=== PATIENT | male | born 1935 | race Caucasian/White ===

== ENCOUNTER → 2016-07-23 | Outpatient (CLI) | payer OTHER ==
[~2016-07-23] VITALS: Ht 182.9 cm; Wt 104.3 kg
[~2016-07-23] MED LIST: APAP500 PO; ASPIR 8181 MG PO; CALCIUM 500 +1 EAC5 PO; CARISOPRODOL 3350 MG PO; CELEXA20 MG PO; COL-RITE50 MG PO; COREG CR10 MG PO; COREG3.125 MG PO; DULOXETINE HCL20 MG PO; ESSENTIAL DAIL1 EACH PO; FIBER TABS625 MG PO; FISH OIL 1,0001 EAC8 PO; FISH OIL 1,001000 M2 PO; LEVOTHYROXIN0.025 MG PO; LISINOPRIL10 MG PO; METFORMIN HCL500 MG PO; MOBIC15 MG PO; NAMENDA 5 MG TAB5 M1 PO; OMEPRAZOLE20 M1 PO; SELENIMIN50 MCG PO; SIMVASTATIN5 MG PO; VITAMIN D2000 UNIT PO
--- NOTE | ~2016-07-23 | HPC ---
[facility] [address] [place] [address] PAIN MANAGEMENT CONSULTATION Name: CRISTHIAN MCNAMARA Room #: REG ALPHONSO Joseph#: [id number] Admission: 07/23/16 Attend Phys: Connor Quintana DO Discharge: Date of : 37 Report #: [id number] THIS REPORT FOR: //name// CC: Alan Quintana DATE OF SERVICE: 07/23/2016 The patient is a pleasant 81-year-old gentleman seen in consultation at the request of Dr. Flores for assistance with management of chronic and ongoing pain concerns. The patient notes initially, he had low back pain treated well with L4-L5 fusion in 2011. Symptoms began to recur and in 2013, he had decompressive laminectomy in L2-L3. Again, he had good results for a while though in March, symptoms recurred without antecedent trauma and overuse. He is complaining primarily of mid to low back pain. He did see another pain clinic provider and had both a thoracic epidural injection and a caudal injection. Unfortunately, both of those afforded really nominal efficacy. He notes he has ongoing pain, low back that is steady, aching, rates anywhere from 4-7 on a 0-10 visual analog scale, seems to be exacerbated with any bending and walking. Does get some relief when he is sitting or taking Tylenol. He saw Dr. Deshpande, his prior surgeon who noted at this time, no surgery was specifically indicated, though he suggested with his ongoing radicular symptoms, he may require surgery at some point in the future. The patient currently and to his credit, has continued to do physical therapy about 20 minutes a day 4 times a week. He has been using a cane off and on, more so since pain recurred in March. The patient denies bowel or bladder incontinence, saddle anesthesia or any specific myelopathic symptoms. REVIEW OF SYSTEMS: Complete review of systems attached to chart and gone over with the patient. He is , does not smoke or drink alcohol to excess. History of non-insulin dependent diabetes for which he takes metformin, hypertension for which he takes lisinopril and carvedilol. He had myocardial infarction. [place] had multivessel coronary artery bypass graft surgery in [facility]. Suffers from dyslipidemia for which he takes cholesterol. Had thyroid surgery in the distant past, takes thyroid supplement. Takes Cymbalta ostensibly for pain and some anxiety and Namenda for some cognitive impairment. He has been on Namenda for about 10 years. 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 Pain impact score is about 5 on a 0-10 [place] [address] PAIN MANAGEMENT CONSULTATION Name: CRISTHIAN MCNAMARA Room #: REG ALPHONSO Ruiz#: [id number] Admission: 07/23/16 Attend Phys: Connor Quintana DO Discharge: Date of : 37 Report #: [id number] all indices queried. PHYSICAL EXAMINATION: Reveals a 6-foot tall, 230-pound gentleman, BMI is 31.2 kilograms per meter squared. Blood pressure is 143/71, pulse 63, respirations 16. Cranial nerves 2-12 are grossly intact. Pupils equal, reactive to light and accommodation. He has significant decrease visual acuity in the left eye and a little bit of disconjugate gaze. No nystagmus is noted. Thyroid has been surgically excised. Does have some nodularity and fullness in the inferior aspect of his neck. Cervical range of motion is otherwise full. Upper extremity strength is preserved. Heart is regular and rhythmical with a subtle 1-2/6 systolic ejection murmur. Lungs show some scattered rhonchi. He notes a moderately endomorphic build. Rises from chair using armrest, has mildly antalgic gait though lumbar flexion is good about 90 degrees. Lower extremity strength is symmetric at 4/5 to all muscle groups tested. Patellar reflexes are difficult to elicit, but straight leg raise is negative. Does have tenderness in the low back area above the iliac crest, more in the L3-L4 area. No tenderness over the SI joints and indeed Alberto test is negative. Side rotation does exacerbate pain. DIAGNOSTIC STUDIES: Include MRI of the thoracic and lumbar spine noting some compromise throughout, some facet arthritis, does note the aforementioned L2-L3 laminectomy and L4-L5 fusion. ASSESSMENT: Symptomatic lumbar spondylosis, axial back pain in a gentleman status post lumbar decompressive laminectomy, coronary artery disease by history, non-insulin dependent diabetes, hypertension, dyslipidemia and some early cognitive defects generally well treated with Namenda at this time. RECOMMENDATION: I believe the patient would benefit from an L3-L4 facet joint injection under fluoroscopy. We talked about therapeutic options at length including consideration for medial branch dorsal rami diagnostic block and subsequent radiofrequency neurolysis if good transient relief is noted. If he gets moderate relief following facet joint injections in last 4-6 weeks, we can do that as needed. Lastly, we did talk about more interventional therapies including a spinal cord stimulator and further back surgery and possible fusion, though latter I think is not warranted at this time. Thank you for allowing me to participate in the patient's care. I will keep you abreast of his progress. <ELECTRONICALLY SIGNED> By: Connor Quintana DO 07/26/16916 0952 1448 Connor Quintana DO /nt
--- NOTE | ~2016-07-23 | HPC ---
[address] [address] PAIN MANAGEMENT CONSULTATION Name: CRISTHIAN MCNAMARA Adriana Room #: REG [facility] Joseph#: [id number] Admission: 07/23/16 Attend Phys: Connor Quitnana DO Discharge: Date of : 37 Report #: [id number] THIS REPORT FOR: //name// CC: Alan Quintana DATE OF SERVICE: 07/23/2016 PROCEDURE: Bilateral L3-L4 facet joint injections under fluoroscopy. INDICATION: Symptomatic lumbar spondylosis in a patient status post decompressive laminectomy with L4-L5 fusion. PROCEDURE NOTE: After written informed consent was obtained, the patient taken to the fluoroscopy suite, placed in the prone position. After sterile prep and drape, skin wheals with Xylocaine were raised and two 22-gauge stylet needles were placed to contact the inferior aspect of the left and right L3-L4 facet joints. AP and lateral projections showed good needle placement. A 20 mg of triamcinolone plus 1 mL of 0.5% preservative-free bupivacaine was injected in each joint. Both needles removed. The area was cleansed, Band-Aids applied. The patient was monitored for an appropriate period of time, discharged in good and stable condition, noting significant incremental improvement of baseline pain. <ELECTRONICALLY SIGNED> By: Connor Quintana DO 08/15/16 1209 1545 2150 Connor Quintana DO /nt
== END ==
LOC: PAIN 06:28
DX: M47.816 Spondylosis without myelopathy or radiculopathy, lumbar region (principal); I25.10 Atherosclerotic heart disease of native coronary artery without angina pectoris; E11.9 Type 2 diabetes mellitus without complications; I10 Essential (primary) hypertension; E78.5 Hyperlipidemia, unspecified; Z98.890 Other specified postprocedural states; F10.21 Alcohol dependence, in remission

== ENCOUNTER → 2016-09-24 | Outpatient (CLI) | payer OTHER ==
[~2016-09-24] VITALS: Ht 182.9 cm; Wt 101.2 kg
--- NOTE | ~2016-09-24 | HPC ---
[facility] [place] [address] [address] [place] [address] PAIN MANAGEMENT CONSULTATION Name: CRISTHIAN MCNAMARA Room #: REG ALPHONSO Ruiz#: [id number] Admission: 09/24/16 Attend Phys: Connor Quintana DO Discharge: Date of : 37 Report #: [id number] THIS REPORT FOR: //name// CC: Alan Quintana HISTORY OF PRESENT ILLNESS: The patient is a very pleasant 81-year-old gentleman being treated for lumbar spondylosis. The patient has spinal fusion with pedicle screws in L4 and L5, bilateral, with no movement at the L4-L5 facet joint. He has had pain with movement of the L5-S1 and L3-L4. I have done 2 specific blocks, initially bilateral L3-L4 facet joint injections, 07/23/2016 and subsequently bilateral L5-S1 facet joint injections, 08/13/2016. He notes greater than 50% relief of both blocks, in fact, he thinks actually the lower blocks did afford even a little more relief. He returns to the pain clinic today noting subjective axial back pain remains problematic. He rates the pain a 4-5 on a 0-10 visual analog scale, exacerbated with any and all movement. Pain is in the low back. Flexion, rotating and side bending exacerbates the pain particularly. Alberto test is negative. It does not appear to be SI mediated pain. He presents to the pain clinic today for prior authorized medial branch dorsal rami diagnostic blocks, L2, L3, L4 and L5 bilaterally, covering innervation of the bilateral L3-L4 and L5-S1 facet joints. We did talk today about radiofrequency neurolysis of the same if he gets short-term relief. If, however, he gets nominal relief from this intervention, we would consider spinal cord stimulator as a possible therapeutic option. ASSESSMENT: Symptomatic lumbar spondylosis. PROCEDURE NOTE: After written informed consent was obtained, the patient was taken to the fluoroscopy suite and placed in prone position. After sterile prep and drape, skin wheals with Xylocaine were raised times 4, left and right. A 16-gauge styletted spinal needle was placed to contact the left sacral alar notch. Second needle was placed to contact the L5 superior articular process lateral to the L4-L5 facet joint. Third needle was placed lateral to the L4 superior articular process lateral to the L3-L4 facet joint. Fourth needle was placed lateral to the L3 superior articular process lateral to the L2-L3 facet joint. AP and lateral projections showed good needle placement at or near the medial rami nerve. The procedure was then repeated on the right side. All 8 needles were then viewed, showing good placement. A 1 mL of 50:50 mix of 0.5% preservative-free bupivacaine plus Xylocaine 1% with 1:200,000 epinephrine was injected. All 8 needles were removed. The area was cleansed, Band-Aids applied. The patient was allowed to ambulate to the recovery room, monitored for an appropriate period of time. The patient noted dramatic improvement of baseline pain, in fact, noting his pain was absent, being a 0 on a visual analog [address] [address] PAIN MANAGEMENT CONSULTATION Name: CRISTHIAN MCNAMARA Room #: REG ALPHONSO Ruiz#: [id number] Admission: 09/24/16 Attend Phys: Connor Quintana DO Discharge: Date of : 37 Report #: [id number] chart on discharge. I asked him to monitor his pain score for the next 5 hours and call back with those reports to the pain clinic. If his good short-term relief continues for several hours, we will request permission to move forward with radiofrequency neurolysis of these nerves. I informed the patient I will only do one side at a time. He has to decide which side is the more problematic. By: 1454 2326 Connor Quintana DO /tiago
[2016-09-24 13:30] VITALS: BP 146/76
== END | disposition home or self-care (01) ==
LOC: PAIN 09-10 06:43
DX: M47.816 Spondylosis without myelopathy or radiculopathy, lumbar region (principal); I10 Essential (primary) hypertension; M19.90 Unspecified osteoarthritis, unspecified site; F32.9 Major depressive disorder, single episode, unspecified

== ENCOUNTER → 2016-10-08 | Outpatient (CLI) | payer OTHER ==
[~2016-10-08] VITALS: Ht 182.9 cm; Wt 104.1 kg
--- NOTE | ~2016-10-08 | HPC ---
[facility] [address] [place] [address] PAIN MANAGEMENT CONSULTATION Name: CRISTHIAN MCNAMARA Room #: REG ALPHONSO Ruiz#: [id number] Admission: 10/08/16 Attend Phys: Connor Quintana DO Discharge: Date of : 37 Report #: [id number] THIS REPORT FOR: //name// CC: Alan Quintana DATE OF SERVICE: 10/08/2016 HISTORY OF PRESENT ILLNESS: The patient is a very pleasant 81-year-old gentleman. He has had a lumbar decompression and fusion at L4-L5. He has pain at the joints above and below this, coming from L3-L4 joint and the L5-S1 facet joint. I have done bilateral L2, L3, L4 and L5 medial branch dorsal rami diagnostic blocks with very good relief. Since the pain clinic today for radiofrequency neurolysis of one side, we have elected to proceed with the right side as it was nominally more painful than the left. Following the last diagnostic block, he had excellent relief with pain score being 0 for about 4 hours and then back to his baseline 5/10 pain. Presents to pain clinic today with ongoing pain, low back, which he currently rates at 2-3/10 at rest, gets up to 5 or 6 with activity. He wished to proceed with the radiofrequency neurolysis of 2 discrete lumbar facet joints, the right L3-L4 joint and the right L5-S1 facet joint. This will require neurolysis of the L2 and L3 medial branch dorsal rami to cover the L3-L4 facet joint and RFL of the right L4 and L5 medial branch dorsal rami to cover the L5-S1 facet joint. ASSESSMENT: Symptomatic lumbar spondylosis in a patient status post L4-L5 fusion. PROCEDURE: Medial branch dorsal rami radiofrequency neurolysis x 4 on the right. FLUOROSCOPY TIME: Under 20 seconds. PROCEDURE NOTE: After written informed consent was obtained, the patient was taken to the fluoroscopy suite and placed in prone position. After sterile prep and drape, foreskin wheals are raised with 1% Xylocaine, four 20 gauge 10 mm RFK needles were placed to contact the right sacral alar notch (corresponding to the L5 medial branch dorsal rami). Second needle was placed lateral to the L5, superior articular process lateral to the L4-L5 facet corresponding to the L4 medial branch dorsal rami, third needle was placed lateral to the L4 superior articular process lateral to the L4-L3 facet joint corresponding to the L3 medial branch dorsal rami nerve, fourth needle was placed lateral to the L3 superior articular process lateral to the L2-L3 joint corresponding to the L2 medial branch dorsal rami nerve. After initial impedance, sensory and motor testing was accomplished, all three needles were injected with 1% preservative-free Xylocaine 1 mL. All four needles were heated to [address] [address] PAIN MANAGEMENT CONSULTATION Name: CRISTHIAN MCNAMARA Room #: REG ALPHONSO Ruiz#: [id number] Admission: 10/08/16 Attend Phys: Connor Quintana DO Discharge: Date of : 37 Report #: [id number] centigrade for 90 seconds, 10 mg of Decadron plus 1 mL of 0.5% preservative-free Xylocaine was injected. All four needles removed. The area was cleansed, Band-Aids applied. The patient was monitored for an appropriate period of time, discharged in good and stable condition. Follow up in 1 week for RFL of the contralateral side. By: 1250 0013 Connor Quintana DO /nt
[2016-10-08 10:59] VITALS: BP 138/76
== END | disposition home or self-care (01) ==
LOC: PAIN 07:42
DX: M47.816 Spondylosis without myelopathy or radiculopathy, lumbar region (principal)

== ENCOUNTER → 2016-10-15 | Outpatient (CLI) | payer OTHER ==
[~2016-10-15] VITALS: Ht 182.9 cm; Wt 103.0 kg
--- NOTE | ~2016-10-15 | HPC ---
[facility] [place] [address] [address] [place] [address] PAIN MANAGEMENT CONSULTATION Name: CRISTHIAN MCNAMARA Adriana Room #: REG Jose Ruiz#: [id number] Admission: 10/15/16 Attend Phys: Connor Quintana, Discharge: Date of : 37 Report #: [id number] THIS REPORT FOR: //name// CC: Alan Quintana The patient is a very pleasant 81-year-old gentleman being treated for symptomatic lumbar radiculopathy status post decompressive laminectomy, has a fusion at L4-L5, has ongoing lumbar spondylosis. The patient was last seen in pain clinic 10/08/2016. We progressed with radiofrequency neurolysis on the right of 2 joints, the L3-L4 and L5-S1 facet joints (medial branch dorsal rami blocks at L2, L3, L4 and L5). The patient returns to pain clinic today noting some incremental relief with this procedure. He is desirous of moving forward with the contralateral side. We talked today about therapeutic options moving forward. He was actually seen for a prolonged visit today from 10:17-10:45. The patient still has ongoing pain now a little bit, greater on the left than the right, but axial back pain exacerbated with standing, walking, bending. Rates the pain down to about 3/10 presently. PHYSICAL EXAMINATION: Shows a 81-year-old gentleman, BMI is 30.8 kilograms per meter squared. Vital signs stable as noted in the EMR. Rises from chair using armrest. Diffuse tenderness in the mid back area, exacerbated with rotation, sidebending and flexion. Lower extremity strength, however, is preserved. Straight leg raise is negative. I reviewed his diagnostic studies including an MRI of the lumbar spine noting facet arthritis (lumbar spondylosis) throughout, prior laminectomy at L2-L3 and fusion at L4-L5. RECOMMENDATION: We will seek authorization for left side neurolysis of the L3-L4 and L5-S1 facet joints (medial branch dorsal rami neurolysis at L2, L3, L4 and L5). We did talk about spinal cord stimulator as possible therapeutic option if he does not get adequate relief with next intervention. We talked about medication management including opiates which the patient is not desirous of moving forward with, he has had opiates in the past with significant constipation. ASSESSMENT: Symptomatic lumbar spondylosis, good yet transient relief following both facet joint injections at bilateral L3-L4 and L5-S1, as well as diagnostic medial branch dorsal rami blocks, status post neurolysis on the right side with [facility] [address] [place] [address] PAIN MANAGEMENT CONSULTATION Name: CRISTHIAN MCNAMARA Adriana Room #: REG [facility] DeepaLaurent#: [id number] Admission: 10/15/16 Attend Phys: Connor Quintana DO Discharge: Date of : 37 Report #: [id number] incremental improvement of baseline pain. The patient wished to proceed with the left side at earliest possible date. By: 1235 2221 Connor Quintana DO /tiago
[2016-10-15 10:16] VITALS: BP 127/72
== END ==
LOC: PAIN 07:07
DX: M47.26 Other spondylosis with radiculopathy, lumbar region (principal); M96.1 Postlaminectomy syndrome, not elsewhere classified; I10 Essential (primary) hypertension; F32.9 Major depressive disorder, single episode, unspecified

== ENCOUNTER → 2016-10-18 | Outpatient (CLI) | payer OTHER ==
[~2016-10-18] VITALS: Ht 182.9 cm; Wt 103.1 kg
--- NOTE | ~2016-10-18 | HPC ---
[facility] [place] [address] PAIN MANAGEMENT CONSULTATION Name: CRISTHIAN MCNAMARA Adriana Room #: REG ALPHONSO Ruiz#: [id number] Admission: 10/18/16 Attend Phys: Connor Quintana DO Discharge: Date of : 37 Report #: [id number] THIS REPORT FOR: //name// CC: Alan Quintana DATE OF SERVICE: 10/18/2016 The patient is a 81-year-old gentleman being treated for lumbar spondylosis, he is status post L4-L5 decompression and fusion, has pain from the L3-L4 and L5-S1 facet joints. I had done diagnostic blocks in the past with good transient relief. Last visit earlier in the month on 10/08/2016, we progressed with radiofrequency neurolysis on the right at L2, L3, L4 and L5 medial branch dorsal rami. He returns to pain clinic today for the contralateral, i.e., left side. Symptomatic relief following the right side. He wished to proceed with the radiofrequency neurolysis today on the left. ASSESSMENT: Symptomatic lumbar spondylosis. PROCEDURE: After written informed consent was obtained including risk of infection, increased pain and weakness, the patient wished to proceed, was taken to fluoroscopy suite, placed in prone position. After sterile prep and drape, skin wheals x 4 were raised. A 10 mm RFK needle was placed to contact the left sacral alar notch, a second needle was placed lateral to the superior articular process of L5, a third needle was placed lateral to the superior articular process of L4, fourth needle was placed lateral to the superior articular process of L3. AP and lateral projection showed good needle placement adjacent to the L2, L3, L4 medial branch dorsal rami and L5 dorsal rami nerve. Appropriate sensory enervation, motor and sensory testing was accomplished. Those numbers are on the chart. Each needle was then injected with 1 mL of 1% preservative-free Xylocaine. Each needle was then heated to 80 degrees centigrade for 90 seconds. 10 mg triamcinolone plus 1 mL of 0.5% preservative-free bupivacaine was injected through each needle. All four needles were removed, area was cleansed, Band-Aids applied. The patient was monitored for an appropriate period of time, discharged in good and stable condition. <ELECTRONICALLY SIGNED> By: Connor Quintana DO 10/19/16 0837 1000 1548 Connor Quintana DO /nt
[2016-10-18 09:06] VITALS: BP 139/71
== END | disposition home or self-care (01) ==
LOC: PAIN 07:10
DX: M47.816 Spondylosis without myelopathy or radiculopathy, lumbar region (principal); Z98.890 Other specified postprocedural states

== ENCOUNTER → 2016-11-01 | Outpatient (CLI) | payer OTHER ==
[~2016-11-01] VITALS: Ht 182.9 cm; Wt 104.3 kg
--- NOTE | ~2016-11-01 | HPC ---
[facility] [place] [address] [place] [address] PAIN MANAGEMENT CONSULTATION Name: CRISTHIAN MCNAMARA Room #: REG ALPHONSO Ruiz#: [id number] Admission: 11/01/16 Attend Phys: Connor Quintana DO Discharge: Date of : 37 Report #: [id number] THIS REPORT FOR: //name// CC: Alan Quintana HISTORY OF PRESENT ILLNESS: The patient is a pleasant 81-year-old gentleman status post 3 back surgeries with ongoing axial back pain and lumbar spondylosis. He had good relief yet transient with bilateral facet joint injections at L3-L4 and L5-S1 (status post L4-L5 fusion), injections were 07/23/2016 and 08/13/2016. We proceeded with medial branch dorsal rami diagnostic block on 09/24/2016, again with good overall improvement, yet transient as expected. We did radiofrequency neurolysis on the right side at L2, L3, L4 and L5 on 10/08/2016 and did the contralateral i.e. left side medial branch dorsal rami at L2, L3, L4 and L5 on 10/18/2016. The patient returns to pain clinic today. Unfortunately, he has not really noted significant improvement with the RFL as he had with the prior diagnostic test. Overall, he notes pain is in the back, exacerbated with standing, walking and bending. He rates the pain at 4/10. It is, however, interfering with function and he has limited his activity because of pain. PHYSICAL EXAMINATION: Remains unchanged, 81-year-old gentleman. BMI is 26 kilograms per meter squared. Blood pressure 147/86, pulse of 94, respirations of 16. Rises from chair using armrest. Diffuse tenderness across the low back. Lower extremity strength is symmetric. Straight leg raise is negative. His neurosurgeon has suggested no further surgery is warranted at this time. Pain, however, remains problematic having failed conservative therapy in a gentleman who is loathe to take opiate analgesics. We talked about the only remaining therapeutic option being a spinal cord stimulator. High frequency stimulation (Nevro) has been helpful for axial back pain. The patient falls into the category of failed back candidate, he has had 3 back surgeries, he has failed conservative therapy. Physical therapy has not improved his functional status. Again, he is loathe to take opiate analgesics. He is taking a nonsteroidal anti-inflammatory medication. Diagnostic studies and interventional studies have all failed to offer any other therapeutic options. Today, we spent a prolonged visit discussing therapeutic options at length. I believe the only thing left is a spinal cord stimulator, which I do think would be an excellent option for this patient. We talked about risks, benefits and mechanism of action. After prolonged visit, the patient has indicated he would like to move forward with spinal cord stimulator trial. I gave him contact information for psychological evaluation as required by most third green party payers. [address] [address] PAIN MANAGEMENT CONSULTATION Name: CRISTHIAN MCNAMARA Room #: REG Jose Ruiz#: [id number] Admission: 11/01/16 Attend Phys: Connor Quintana DO Discharge: Date of : 37 Report #: [id number] The patient discharged in good and stable condition today after prolonged visit, he was seen from 10:44-11:10, greater than 50% of this 25+ minute visit was spent counseling the patient. He was discharged in good and stable condition. He will talk to a psychologist. When we get that consult back, we will schedule a spinal cord stimulator trial at the patient's earliest possible convenience. Discharged in good and stable condition. <ELECTRONICALLY SIGNED> By: Connor Quintana DO 11/02/16 0713 1150 2254 Connor Quintana DO /nt
[2016-11-01 10:41] VITALS: BP 147/86
== END | disposition home or self-care (01) ==
LOC: PAIN 07:01
DX: M47.896 Other spondylosis, lumbar region (principal); Z98.890 Other specified postprocedural states

== ENCOUNTER → 2017-05-27 | Outpatient (CLI) | payer OTHER ==
[~2017-05-27] VITALS: Ht 182.9 cm; Wt 105.1 kg
[~2017-05-27] MED LIST changes: +AMARYL2 MG PO; +LOSARTAN-HCTZ1 EACH PO
--- NOTE | ~2017-05-27 | HPC ---
[facility] [address] [place] [address] PAIN MANAGEMENT CONSULTATION Name: CRISTHIAN MCNAMARA Room #: REG [facility] Dwayne.#: [id number] Admission: 05/27/17 Attend Phys: Connor Quintana DO Discharge: Date of : 37 Report #: [id number] THIS REPORT FOR: //name// CC: Alan Quintana The patient is a very pleasant 81-year-old gentleman who had a spinal cord stimulator trial on 05/20/2017, returns to pain clinic today for lead removal and evaluation of trial. The patient is dramatically impressed with his functional status, states he can stand for greater than an hour now with nominal relief. Rates his pain a 0-1 on VAS. He is very enthusiastic about moving forward with stimulator implant. He had prior seen Dr. Deshpande, Dr. Narendra Dent's partner. We will refer the patient to Dr. Dent for consideration for paddle implantation of a Nevro high frequency spinal cord stimulator. The leads were removed. The area was cleansed, Band-Aids applied. The area looks good. No signs of inflammation or infection. We will refer information to Dr. Narendra Dent at [facility] for a spinal cord stimulator (high frequency Nevro) paddle and IPG implant. Discharged in good and stable condition. <ELECTRONICALLY SIGNED> By: Connor Quintana DO 05/29/17 0808 1633 13 Connor Quintana DO /tiago
[2017-05-27 09:39] VITALS: BP 116/95
== END ==
LOC: PAIN 07:04
DX: Z46.2 Encounter for fitting and adjustment of other devices related to nervous system and special senses (principal)